=== PATIENT | female | born 1950 | race Caucasian/White ===

== ENCOUNTER 2022-12-08 15:06 | Inpatient (IN) | payer OTHER ==
[~2022-12-08] VITALS: Ht 160 cm; Wt 46.7 kg
[2022-12-08] MEDS ORDERED: LORAZEPAM 2 MG/1 ML VIAL ONE (15:14)
[2022-12-08] MEDS ORDERED: ALBUTEROL SULFATE 2.5 MG/3 ML NEBU ONE (15:25)
[2022-12-08] MEDS ORDERED: IPRATROPIUM BROMIDE 0.5 MG/2.5 ML NEBU ONE (15:25)
[2022-12-08] MEDS ORDERED: ACETAMINOPHEN 650 MG SUPP.RECT RC ONE ×3 (15:54→16:00)
[2022-12-08 15:57] LABS: HEMATOCRIT 27.2 % (31.2-41.9); MEAN CORPUSCULAR VOLUME 91.3 fL (75.5-95.3); PLATELET COUNT (AUTO) 115 K/uL (179-408)
[2022-12-08] MEDS ORDERED: ACETAMINOPHEN 325 MG SUPP RC ONE (16:00)
[2022-12-08 16:20] LABS: CREATINE KINASE, TOTAL 172 U/L (26-192)
[2022-12-08 16:28] LABS: ALANINE AMINOTRANSFERASE 29 U/L (14-59); ALKALINE PHOSPHATASE 82 U/L (50-136); ASPARTATE AMINOTRANSFERASE 41 U/L (15-37); BILIRUBIN,DIRECT 0.4 mg/dL (0.0-0.2); BILIRUBIN,TOTAL 0.7 mg/dL (0.2-1.0); CARBON DIOXIDE 16 mmol/L (21-32); CHLORIDE 104 mmol/L (98-107); CREATININE 1.5 mg/dL (0.6-1.3); GLUCOSE 143 mg/dL (74-106); POTASSIUM 3.7 mmol/L (3.5-5.1); TOTAL PROTEIN, SERUM 6.1 g/dL (6.4-8.2); UREA NITROGEN, BLOOD 19 mg/dL (7-18)
[2022-12-08 16:29] LABS: ETHANOL < 3 MG/DL (0-0)
[2022-12-08] MEDS ORDERED: CEFTRIAXONE 1 G in IV DEXTROSE 5% 50 ML IV ONE (16:30)
[2022-12-08] MEDS ORDERED: AZITHROMYCIN IV 500 MG in IV DEXTROSE 5% 250 ML IV ONE (16:30)
[2022-12-08] MEDS ORDERED: IV NORMAL SALINE 500 ML IV ONE (17:00)
[2022-12-08 17:28] LABS: *BILIRUBIN,URIN NEGATIVE (NEGATIVE); *BLOOD, URINE 3+ (NEGATIVE); *CLARITY,URINE CLEAR (CLEAR); *COLOR,URINE YELLOW (YELLOW); *KETONES,URINE NEGATIVE (NEGATIVE); *UROBILINOGEN,URINE 0.2 E.U./dl (NORMAL); LEUKOCYTE ESTERASE ,URINE TRACE (NEGATIVE); NITRITE, URINE NEGATIVE (NEGATIVE); UGLUCOSE NEGATIVE (NEGATIVE)
[2022-12-08 17:40] LABS: *AMPHETAMINE, URINE NEGATIVE (NEGATIVE); *CANNABINOID, URINE NEGATIVE (NEGATIVE); *COCCAINE, URINE NEGATIVE (NEGATIVE); *PHENCYCLIDINE SCREEN,URINE NEGATIVE (NEGATIVE)
[2022-12-08] MEDS ORDERED: ONDANSETRON 4 MG/2 ML VIAL IV PRN (18:30)
[2022-12-08] MEDS ORDERED: IPRATROPIUM BROMIDE 0.5 MG/2.5 ML NEBU NEB PRN (18:30)
[2022-12-08] MEDS ORDERED: ZOLPIDEM 5 MG TABLET PO PRN (18:30)
[2022-12-08] MEDS ORDERED: MAGNESIUM HYDROXIDE 30 ML LIQUID UDC PO PRN (18:30)
[2022-12-08] MEDS ORDERED: LACTULOSE 20 G/30 ML LIQUID UDC PO PRN (18:30)
[2022-12-08] MEDS ORDERED: ACETAMINOPHEN 325 MG TABLET PO PRN (18:30)
[2022-12-08] MEDS ORDERED: ALBUTEROL SULFATE 2.5 MG/ 0.5 ML NEBU NEB PRN (18:30)
[2022-12-08] MEDS ORDERED: REMEDY ESSENTIAL ZINC PASTE 113 GM TP PRN (18:30)
[2022-12-08] MEDS ORDERED: VANCOMYCIN IV 1,250 MG in IV DEXTROSE 5% 250 ML IV ONE (19:30)
[2022-12-08 20:04] VITALS: BP 113/79
[2022-12-08] MEDS ORDERED: VANCOMYCIN HCL 500 MG VIAL ONE (20:44)
[2022-12-08] MEDS ORDERED: VANCOMYCIN 1000 MG VIAL ONE (20:44)
[2022-12-08] MEDS ORDERED: CEFEPIME HCL 1 G VIAL ONE (20:45)
[2022-12-08 21:26] LABS: BACTERIA,URINE MODERATE /HPF (NONE SEEN); SQUAMOUS EPITHELIAL CELL,UR FEW /HPF (NONE SEEN); WBC,URINE 20-50 /HPF (0-3)
[2022-12-08] MEDS: CEFEPIME HCL 2 G in IV DEXTROSE 5% 100 ML IV SCH (22:06)
[2022-12-09 00:52] VITALS: BP 148/69
[2022-12-09 04:41] VITALS: BP 94/50
[2022-12-09 06:36] LABS: HEMATOCRIT 26.6 % (31.2-41.9); MEAN CORPUSCULAR HEMOGLOBIN 30.5 uug (24.7-32.8); MEAN CORPUSCULAR VOLUME 90.7 fL (75.5-95.3); PLATELET COUNT (AUTO) 102 K/uL (179-408)
[2022-12-09 07:01] LABS: BILIRUBIN,DIRECT 0.4 mg/dL (0.0-0.2); BILIRUBIN,TOTAL 0.7 mg/dL (0.2-1.0); TOTAL PROTEIN, SERUM 5.4 g/dL (6.4-8.2)
[2022-12-09 07:03] LABS: CARBON DIOXIDE 18 mmol/L (21-32); CHLORIDE 105 mmol/L (98-107); CREATININE 1.4 mg/dL (0.6-1.3); GLUCOSE 101 mg/dL (74-106); MAGNESIUM 1.6 mg/dL (1.8-2.4); PHOSPHOROUS 2.8 mg/dL (2.5-4.9); POTASSIUM 4.1 mmol/L (3.5-5.1); UREA NITROGEN, BLOOD 19 mg/dL (7-18)
[2022-12-09] MEDS: PANTOPRAZOLE SODIUM 40 MG VIAL IV SCH (08:55)
[2022-12-09] MEDS: MAGNESIUM SULFATE/D5W 100 ML IV SCH ×2 (09:12→10:19)
[2022-12-09] MEDS: DEXAMETHASONE SOD PHOSPHATE 10 MG INJ IV SCH (09:12)
[2022-12-09] MEDS: ENOXAPARIN SODIUM 40 MG/0.4 ML DISP.SYRIN SQ SCH (09:13)
[2022-12-09] MEDS: CEFEPIME HCL 2 G in IV DEXTROSE 5% 100 ML IV SCH ×2 (09:19→20:48)
[2022-12-09 11:14] VITALS: BP 106/48
[2022-12-09] MEDS ORDERED: REMDESIVIR (CHARGED) 200 MG in IV NORMAL SALINE 210 ML IV ONE (14:00)
[2022-12-10 07:00] LABS: HEMATOCRIT 28.1 % (31.2-41.9); MEAN CORPUSCULAR HEMOGLOBIN 30.5 uug (24.7-32.8); MEAN CORPUSCULAR VOLUME 89.7 fL (75.5-95.3); PLATELET COUNT (AUTO) 111 K/uL (179-408)
[2022-12-10 07:30] VITALS: BP 118/45
[2022-12-10 08:04] LABS: ALANINE AMINOTRANSFERASE 24 U/L (14-59); ALKALINE PHOSPHATASE 76 U/L (50-136); ASPARTATE AMINOTRANSFERASE 37 U/L (15-37); BILIRUBIN,DIRECT 0.4 mg/dL (0.0-0.2); BILIRUBIN,TOTAL 0.5 mg/dL (0.2-1.0); CARBON DIOXIDE 16 mmol/L (21-32); CHLORIDE 108 mmol/L (98-107); CREATININE 1.4 mg/dL (0.6-1.3); GLUCOSE 155 mg/dL (74-106); POTASSIUM 4.8 mmol/L (3.5-5.1); TOTAL PROTEIN, SERUM 5.8 g/dL (6.4-8.2); UREA NITROGEN, BLOOD 25 mg/dL (7-18)
[2022-12-10 08:27] LABS: MAGNESIUM 2.3 mg/dL (1.8-2.4); PHOSPHOROUS 2.6 mg/dL (2.5-4.9)
[2022-12-10] MEDS ORDERED: ALBUMIN HUMAN 25% 50 ML IV ONE (09:00)
[2022-12-10] MEDS: DEXAMETHASONE SOD PHOSPHATE 10 MG INJ IV SCH (09:05)
[2022-12-10] MEDS: PANTOPRAZOLE SODIUM 40 MG VIAL IV SCH (09:05)
[2022-12-10] MEDS: ENOXAPARIN SODIUM 40 MG/0.4 ML DISP.SYRIN SQ SCH (09:06)
[2022-12-10] MEDS: CEFEPIME HCL 2 G in IV DEXTROSE 5% 100 ML IV SCH ×2 (09:06→22:26)
[2022-12-10 11:46] VITALS: BP 116/62
[2022-12-10] MEDS: VANCOMYCIN IV 500 MG in IV DEXTROSE 5% 100 ML IV SCH (11:58)
[2022-12-10] MEDS: LACTULOSE 20 G/30 ML LIQUID UDC PO SCH ×2 (13:36→16:43)
[2022-12-10] MEDS: REMDESIVIR (CHARGED) 100 MG in IV NORMAL SALINE 100 ML IV SCH (13:37)
[2022-12-10 16:23] VITALS: BP 120/57
[2022-12-10 20:00] VITALS: BP 113/62
[2022-12-11] VITALS: BP 101/56
[2022-12-11 04:00] VITALS: BP 111/48
[2022-12-11] MEDS: PANTOPRAZOLE SODIUM 40 MG VIAL IV SCH (08:27)
[2022-12-11] MEDS: ENOXAPARIN SODIUM 30 MG/0.3 ML DISP.SYRIN SQ SCH (08:28)
[2022-12-11] MEDS: DEXAMETHASONE SOD PHOSPHATE 10 MG INJ IV SCH (08:28)
[2022-12-11] MEDS: LACTULOSE 20 G/30 ML LIQUID UDC PO SCH ×2 (08:28→16:58)
[2022-12-11 08:59] LABS: HEMATOCRIT 28.8 % (31.2-41.9); MEAN CORPUSCULAR HEMOGLOBIN 29.8 uug (24.7-32.8); PLATELET COUNT (AUTO) 124 K/uL (179-408)
[2022-12-11 09:00] LABS: MAGNESIUM 2.3 mg/dL (1.8-2.4); PHOSPHOROUS 3.7 mg/dL (2.5-4.9)
[2022-12-11] MEDS: CEFEPIME HCL 2 G in IV DEXTROSE 5% 100 ML IV SCH ×2 (09:03→22:01)
[2022-12-11 10:07] LABS: ALANINE AMINOTRANSFERASE 27 U/L (14-59); ALKALINE PHOSPHATASE 91 U/L (50-136); ASPARTATE AMINOTRANSFERASE 32 U/L (15-37); BILIRUBIN,DIRECT 0.4 mg/dL (0.0-0.2); BILIRUBIN,TOTAL 0.7 mg/dL (0.2-1.0); CARBON DIOXIDE 15 mmol/L (21-32); CHLORIDE 108 mmol/L (98-107); CREATININE 1.6 mg/dL (0.6-1.3); GLUCOSE 140 mg/dL (74-106); POTASSIUM 4.5 mmol/L (3.5-5.1); TOTAL PROTEIN, SERUM 6.5 g/dL (6.4-8.2); UREA NITROGEN, BLOOD 33 mg/dL (7-18)
[2022-12-11] MEDS: VANCOMYCIN IV 500 MG in IV DEXTROSE 5% 100 ML IV SCH (12:09)
[2022-12-11 13:51] VITALS: BP 115/62
[2022-12-11] MEDS: REMDESIVIR (CHARGED) 100 MG in IV NORMAL SALINE 100 ML IV SCH (13:52)
[2022-12-11 16:00] VITALS: BP 122/63
[2022-12-11 16:32] LABS: *BILIRUBIN,URIN NEGATIVE (NEGATIVE); *BLOOD, URINE 2+ (NEGATIVE); *CLARITY,URINE CLEAR (CLEAR); *COLOR,URINE YELLOW (YELLOW); *KETONES,URINE TRACE (NEGATIVE); *UROBILINOGEN,URINE 0.2 E.U./dl (NORMAL); LEUKOCYTE ESTERASE ,URINE TRACE (NEGATIVE); NITRITE, URINE NEGATIVE (NEGATIVE); PH,URINE 5.5 (5.0-8.0); UGLUCOSE NEGATIVE (NEGATIVE)
[2022-12-11 16:47] LABS: *CREATININE,URINE 106.1 mg/dL (30-125); *URINE TOTAL PROTEIN RANDOM 59.7 mg/dL (<150/24HR)
[2022-12-11 20:00] VITALS: BP 128/61
[2022-12-11 20:19] LABS: BACTERIA,URINE FEW /HPF (NONE SEEN); RBC,URINE 20-50 /HPF (0-3); SQUAMOUS EPITHELIAL CELL,UR MODERATE /HPF (NONE SEEN)
[2022-12-12] VITALS: BP 116/61
[2022-12-12 04:00] VITALS: BP 132/73
[2022-12-12] MEDS: PANTOPRAZOLE SODIUM 40 MG TABLET.DR PO SCH (06:23)
[2022-12-12 06:52] LABS: HEMATOCRIT 29.5 % (31.2-41.9); MEAN CORPUSCULAR HEMOGLOBIN 30.1 uug (24.7-32.8); MEAN CORPUSCULAR VOLUME 89.7 fL (75.5-95.3); PLATELET COUNT (AUTO) 105 K/uL (179-408)
[2022-12-12 07:20] LABS: ALANINE AMINOTRANSFERASE 22 U/L (14-59); ALKALINE PHOSPHATASE 80 U/L (50-136); ASPARTATE AMINOTRANSFERASE 22 U/L (15-37); BILIRUBIN,DIRECT 0.4 mg/dL (0.0-0.2); BILIRUBIN,TOTAL 0.7 mg/dL (0.2-1.0); CARBON DIOXIDE 17 mmol/L (21-32); CHLORIDE 109 mmol/L (98-107); CREATINE KINASE, TOTAL 37 U/L (26-192); CREATININE 1.5 mg/dL (0.6-1.3); GLUCOSE 130 mg/dL (74-106); MAGNESIUM 2.2 mg/dL (1.8-2.4); PHOSPHOROUS 3.2 mg/dL (2.5-4.9); POTASSIUM 4.8 mmol/L (3.5-5.1); UREA NITROGEN, BLOOD 38 mg/dL (7-18)
[2022-12-12] MEDS: DEXAMETHASONE SOD PHOSPHATE 10 MG INJ IV SCH (09:01)
[2022-12-12] MEDS: LACTULOSE 20 G/30 ML LIQUID UDC PO SCH ×3 (09:01→17:18)
[2022-12-12] MEDS: ENOXAPARIN SODIUM 30 MG/0.3 ML DISP.SYRIN SQ SCH (09:03)
[2022-12-12] MEDS: CEFEPIME HCL 2 G in IV DEXTROSE 5% 100 ML IV SCH ×2 (09:46→21:52)
[2022-12-12 11:39] VITALS: BP 149/74
[2022-12-12] MEDS: REMDESIVIR (CHARGED) 100 MG in IV NORMAL SALINE 100 ML IV SCH (14:10)
[2022-12-12 16:00] VITALS: BP 137/65
[2022-12-13 00:05] VITALS: BP 139/69
[2022-12-13] MEDS: PANTOPRAZOLE SODIUM 40 MG TABLET.DR PO SCH (06:11)
[2022-12-13 06:50] LABS: HEMATOCRIT 31.2 % (31.2-41.9); MEAN CORPUSCULAR HEMOGLOBIN 30.2 uug (24.7-32.8); MEAN CORPUSCULAR VOLUME 90.3 fL (75.5-95.3); PLATELET COUNT (AUTO) 121 K/uL (179-408)
[2022-12-13 07:32] LABS: ALANINE AMINOTRANSFERASE 22 U/L (14-59); ALKALINE PHOSPHATASE 95 U/L (50-136); ASPARTATE AMINOTRANSFERASE 20 U/L (15-37); BILIRUBIN,DIRECT 0.5 mg/dL (0.0-0.2); BILIRUBIN,TOTAL 0.9 mg/dL (0.2-1.0); CARBON DIOXIDE 17 mmol/L (21-32); CHLORIDE 109 mmol/L (98-107); CREATININE 1.7 mg/dL (0.6-1.3); GLUCOSE 170 mg/dL (74-106); MAGNESIUM 2.1 mg/dL (1.8-2.4); PHOSPHOROUS 2.8 mg/dL (2.5-4.9); POTASSIUM 4.2 mmol/L (3.5-5.1); TOTAL PROTEIN, SERUM 6.3 g/dL (6.4-8.2); UREA NITROGEN, BLOOD 41 mg/dL (7-18)
[2022-12-13] MEDS: ENOXAPARIN SODIUM 30 MG/0.3 ML DISP.SYRIN SQ SCH ×2 (09:00→10:45)
[2022-12-13] MEDS: LACTULOSE 20 G/30 ML LIQUID UDC PO SCH ×4 (09:00→17:52)
[2022-12-13] MEDS: DEXAMETHASONE SOD PHOSPHATE 10 MG INJ IV SCH (10:44)
[2022-12-13 11:34] VITALS: BP 144/79
[2022-12-13 16:00] VITALS: BP 144/76
[2022-12-13 20:36] VITALS: BP 128/63
[2022-12-13] MEDS ORDERED: CEFEPIME HCL 2 G in IV DEXTROSE 5% 100 ML IV SCH (22:00)
[2022-12-13 23:35] VITALS: BP 139/69
[2022-12-14 04:15] VITALS: BP 130/64
[2022-12-14] MEDS: PANTOPRAZOLE SODIUM 40 MG TABLET.DR PO SCH (06:22)
[2022-12-14 07:07] LABS: A/G RATIO 0.6 (0.7-1.7); ALPHA-1-GLOBULIN 0.3 g/dL (0.0-0.4); ALPHA-2-GLOBULIN 0.6 g/dL (0.4-1.0); BETA GLOBULIN 0.7 g/dL (0.7-1.3); GAMMA GLOBULIN 1.8 g/dL (0.4-1.8); GLOBULIN, TOTAL 3.4 g/dL (2.2-3.9); M-SPIKE Not Observed g/dL (Not Observed)
[2022-12-14 07:24] LABS: HEMATOCRIT 30.2 % (31.2-41.9); MEAN CORPUSCULAR HEMOGLOBIN 29.5 uug (24.7-32.8); MEAN CORPUSCULAR VOLUME 88.8 fL (75.5-95.3); PLATELET COUNT (AUTO) 100 K/uL (179-408)
[2022-12-14] MEDS: DEXAMETHASONE SOD PHOSPHATE 10 MG INJ IV SCH (08:07)
[2022-12-14] MEDS: ENOXAPARIN SODIUM 30 MG/0.3 ML DISP.SYRIN SQ SCH (08:08)
[2022-12-14] MEDS: LACTULOSE 20 G/30 ML LIQUID UDC PO SCH (08:09)
[2022-12-14 08:18] LABS: CARBON DIOXIDE 17 mmol/L (21-32); CHLORIDE 110 mmol/L (98-107); CREATININE 1.5 mg/dL (0.6-1.3); GLUCOSE 129 mg/dL (74-106); POTASSIUM 4.4 mmol/L (3.5-5.1); UREA NITROGEN, BLOOD 39 mg/dL (7-18)
[2022-12-14] MEDS ORDERED: ALBU2.5V13 NEB (12:55)
[2022-12-14] MEDS ORDERED: CEFE2PIG2 IV (12:55)
[2022-12-14] MEDS ORDERED: PANT40TA49 PO (12:55)
[2022-12-14] MEDS ORDERED: ENOX30DI SQ (12:55)
[2022-12-14] MEDS ORDERED: DEXA4TAB PO (12:55)
[2022-12-14] MEDS ORDERED: LACT10SO7 PO (12:55)
[2022-12-14] MEDS ORDERED: IPRA0.2S6 NEB (12:55)
[2022-12-14] MEDS ORDERED: ACET325T53 PO (12:55)
== END 2022-12-14 12:25 | DRG 871 ==
LOC: ER 15:06 → TELE3 18:01
PROVIDERS: ADMIT Nurse Practitioner Acute Care; ATTEND Nurse Practitioner Acute Care
PROC: XW033E5 Introduction of Remdesivir Anti-infective into Peripheral Vein, Percutaneous Approach, New Technology Group 5 (ICD-10-PCS; principal; 2022-12-09)
PROC: 05HC33Z Insertion of Infusion Device into Left Basilic Vein, Percutaneous Approach (ICD-10-PCS; 2022-12-09)
PROC: 0W9G3ZZ Drainage of Peritoneal Cavity, Percutaneous Approach (ICD-10-PCS; 2022-12-09)
DX: A41.89 Other specified sepsis (principal); G92.8 Other toxic encephalopathy; J12.82 Pneumonia due to coronavirus disease 2019; U07.1 COVID-19; J96.01 Acute respiratory failure with hypoxia; J69.0 Pneumonitis due to inhalation of food and vomit; N17.0 Acute kidney failure with tubular necrosis; D61.818 Other pancytopenia; N39.0 Urinary tract infection, site not specified; R65.20 Severe sepsis without septic shock; K70.31 Alcoholic cirrhosis of liver with ascites; B95.61 Methicillin susceptible Staphylococcus aureus infection as the cause of diseases classified elsewhere; J32.4 Chronic pansinusitis; H70.91 Unspecified mastoiditis, right ear; D63.8 Anemia in other chronic diseases classified elsewhere; F10.21 Alcohol dependence, in remission; Z90.710 Acquired absence of both cervix and uterus; Z87.442 Personal history of urinary calculi; Z72.0 Tobacco use
CPT/HCPCS: 36415; 70450; 71045; 83605; 83690; 83735; 83970; 84100; 84155; 84165; 84300; 84443; 84484; 85025; 85610; 85730; 86140; 87040; 93005; 93307; A4663; C1758; C9113; G0378; G0480; J0248; J0692; J1100; J1650; J2060; J3370; J3475; J3590; J7050; P9047